=== PATIENT | female | born 1955 | race Caucasian/White ===

== ENCOUNTER → 2016-06-16 | Outpatient (CLI) | payer OTHER ==
[~2016-06-16] MED LIST: CALCTAB5 PO; CHOL100010 PO; CRD60 PO; METO-157 PO; PRLSR20 PO
--- NOTE | 2016-06-16 12:28 | DIAGNOSTIC IMAGING REPORT ---
CHEST 2 VIEWS ROUTINE HISTORY: J20.9 Acute bronchitis COMPARISON: Chest CTA 09/18/2008. FINDINGS: Poststernotomy changes. The lungs are clear. No pleural effusions. No pneumothorax. The heart is normal in size. IMPRESSION: No acute process. Electronically signed by: Beck Vasquez M.D. 06/16/2016 12:27 PM Dictated Date/Time: 06/16/2016 12:25 PM
== END | disposition home or self-care (01) ==
LOC: C.RAD1850 12:07
PROVIDERS: ATTEND Nurse Practitioner Family
DX: J20.9 Acute bronchitis, unspecified (principal)

== ENCOUNTER → 2016-06-26 | Outpatient (CLI) | payer OTHER ==
[2016-06-26 13:33] LABS: BASO % 0.1 %; BASO ABS # 0.01 K/uL (0-0.2); COMPLETE YES; EOS % 0.8 %; HEMATOCRIT 40.6 % (37-47); IG% 0.7 %; LYMPH % 28.1 %; LYMPH ABS # 2.98 K/uL (1.2-3.4); MEAN CELL VOLUME 88.3 fL (80-100); MEAN CORPUSCULAR HEMOGLOBIN 29.8 pg (25-34); MEAN CORPUSCULAR HGB CONC 33.7 g/dl (32-36); MEAN PLATELET VOLUME 10.9 fL (7.4-10.4); NEUT % 61.3 %; PLATELET COUNT 378 K/uL (130-400)
[2016-06-26 13:50] LABS: ALKALINE PHOSPHATASE 76 U/L (45-117); ALT/SGPT 39 U/L (12-78); AST/SGOT 16 U/L (15-37); BLOOD UREA NITROGEN 25 mg/dl (7-18); BUN/CREATININE RATIO 22.4 (10-20); CALCIUM 8.7 mg/dl (8.5-10.1); CARBON DIOXIDE 29 mmol/L (21-32); CHLORIDE 106 mmol/L (98-107); CHOLESTEROL 150 mg/dl (0-200); ESTIMATED AVERAGE GLUCOSE 123 mg/dl; GLUCOSE 87 mg/dl (70-99); HA1C FLAG Normal (Normal); POTASSIUM 3.7 mmol/L (3.5-5.1); SODIUM 143 mmol/L (136-145)
[2016-06-26 13:51] LABS: ALB/GLOB RATIO 1.1 (0.9-2); CHOLESTEROL/HDL RATIO 2.2; HDL CHOLESTEROL 69 mg/dl; LDL CHOLESTEROL CALCULATED 53 mg/dl; TRIGLYCERIDES 141 mg/dl (0-150); VERY LOW DENSITY LIPOPROT CALC 28 mg/dl
[2016-06-28 00:37] LABS: RECEPTOR BINDING AB <0.30 nmol/L (<=0.30)
== END | disposition home or self-care (01) ==
LOC: C.LABBC 10:19
PROVIDERS: ATTEND Nurse Practitioner Family
DX: I10 Essential (primary) hypertension (principal); I25.10 Atherosclerotic heart disease of native coronary artery without angina pectoris; E78.00 Pure hypercholesterolemia, unspecified; E88.81 Metabolic syndrome and other insulin resistance; G70.00 Myasthenia gravis without (acute) exacerbation; E53.8 Deficiency of other specified B group vitamins; Z11.59 Encounter for screening for other viral diseases

== ENCOUNTER → 2017-01-06 | Outpatient (CLI) | payer OTHER ==
[2017-01-06 13:51] LABS: HEMATOCRIT 40.3 % (37-47); MEAN CORPUSCULAR HEMOGLOBIN 30.3 pg (25-34); MEAN CORPUSCULAR HGB CONC 34.5 g/dl (32-36); MEAN PLATELET VOLUME 11.4 fL (7.4-10.4); PLATELET COUNT 298 K/uL (130-400); RED BLOOD COUNT 4.58 M/uL (4.2-5.4); WHITE BLOOD COUNT 6.38 K/uL (4.8-10.8)
[2017-01-06 14:14] LABS: ESTIMATED AVERAGE GLUCOSE 111 mg/dl; HA1C FLAG Normal (Normal)
[2017-01-06 14:22] LABS: ALT/SGPT 45 U/L (12-78); BLOOD UREA NITROGEN 20 mg/dl (7-18); BUN/CREATININE RATIO 17.8 (10-20); CALCIUM 9.4 mg/dl (8.5-10.1); CARBON DIOXIDE 24 mmol/L (21-32); CHLORIDE 108 mmol/L (98-107); CHOLESTEROL 53 mg/dl (0-200); GLUCOSE 99 mg/dl (70-99); POTASSIUM 3.7 mmol/L (3.5-5.1); SODIUM 140 mmol/L (136-145)
[2017-01-06 14:25] LABS: ALB/GLOB RATIO 1.2 (0.9-2); ALKALINE PHOSPHATASE 93 U/L (45-117); AST/SGOT 34 U/L (15-37); CHOLESTEROL/HDL RATIO 0.9; HDL CHOLESTEROL 60 mg/dl; TRIGLYCERIDES 83 mg/dl (0-150); VERY LOW DENSITY LIPOPROT CALC 17 mg/dl
== END | disposition home or self-care (01) ==
LOC: C.LABBC 09:34
PROVIDERS: ATTEND Family Medicine
DX: E78.00 Pure hypercholesterolemia, unspecified (principal); G70.00 Myasthenia gravis without (acute) exacerbation; I10 Essential (primary) hypertension; I25.10 Atherosclerotic heart disease of native coronary artery without angina pectoris; K21.9 Gastro-esophageal reflux disease without esophagitis

== ENCOUNTER → 2017-01-30 | Outpatient (CLI) | payer OTHER ==
--- NOTE | 2017-01-30 09:54 | DIAGNOSTIC IMAGING REPORT ---
SINUSES MIN 3 VIEWS ROUTINE CLINICAL HISTORY: 61 years-old Female presenting with R05 Chronic [id number]. TECHNIQUE: 3 views of the sinuses were obtained. COMPARISON: None. FINDINGS: Paranasal sinuses and mastoid air cells grossly clear. Bony nasal septum midline. Normal sella. Normal upper cervical spine. Calvarium grossly intact. IMPRESSION: Clear sinuses. Electronically signed by: Marbin Moss M.D. 01/30/2017 9:52 AM Dictated Date/Time: 01/30/2017 9:51 AM
[2017-01-30 10:56] LABS: IMMUNOGLOBULN M 83.8 mg/dL (40-230)
== END | disposition home or self-care (01) ==
LOC: C.RAD1850 09:11
PROVIDERS: ATTEND Internal Medicine Pulmonary Disease
DX: R05 Cough (principal)